=== PATIENT | female | born 1960 ===

== ENCOUNTER 2024-06-22 13:18 | Day surgery (SDC) | payer OTHER ==
[~2024-06-22] VITALS: Ht 167.6 cm; Wt 84.2 kg
[~2024-06-22 13:18] MED LIST: Balanced Salt Epinephrine Irrigation Solution 500 mL IR SCH; Diazepam 10 MG Tab ONE; Diazepam 5 MG Tab PO PRN; Diazepam 5 MG Tab PO SCH; Lidocaine HCl/Pf 1% 5 ML VIAL XX SCH; Moxifloxacin HCL 0.5 MG/0.1 ML 0.4MLSYR RIGHTEYE SCH; Ondansetron 4 MG SoluTab MM PRN; PHENYLEPHRINE\\TROPICAMIDE\\TETRACAINE OPHTHALMIC DILATING SOLN RIGHTEYE PRN; Povidone-Iodine 450 DROP/30 ML Solution ONE; Povidone-Iodine 450 DROP/30 ML Solution RIGHTEYE SCH; Tetracaine HCl/Pf 0.5% Opth Soln 4 ml ONE
[2024-06-22] MEDS ORDERED: ALBU90OI INH (13:33)
[2024-06-22] MEDS ORDERED: CARV3.125 (13:34)
[2024-06-22] MEDS ORDERED: Vitamin D1000 UNI1 (13:35)
[2024-06-22] MEDS ORDERED: FLUTICASONE-SA1 EAC9 (13:35)
[2024-06-22] MEDS ORDERED: IPRAT-ALBUT 0.5-3 ML (13:35)
[2024-06-22] MEDS ORDERED: LISI10 PO (13:36)
--- NOTE | 2024-06-22 13:46 | NUR ---
06/22/24 1346 Randy Bullock CALL [facility] WITHIN REACH. TETRACAINE IN RIGHT EYE AT 1334 AND PLEDGETT IN AT 1335. PT STATES ANXIETY LEVEL IS AT 5/10 VALIUM 10MG GIVEN AT 1331
--- NOTE | 2024-06-22 13:58 | NUR ---
06/22/24 1358 Honey Ernst VITALS AT 1355 BP:168/93 P:87 O2:94% 10 LITERS OF BLOW BY OXYGEN
== END 2024-06-22 14:34 | disposition home or self-care (01) ==
LOC: ORSCSDS 13:18
PROVIDERS: Student in an Organized Health Care Education/Training Program
PROC: 08RJ3JZ Replacement of Right Lens with Synthetic Substitute, Percutaneous Approach (ICD-10-PCS; principal; 2024-06-22 14:30)
DX: H25.091 Other age-related incipient cataract, right eye (principal); H52.201 Unspecified astigmatism, right eye; F17.210 Nicotine dependence, cigarettes, uncomplicated; Z96.1 Presence of intraocular lens; I10 Essential (primary) hypertension; Z86.19 Personal history of other infectious and parasitic diseases; J45.909 Unspecified asthma, uncomplicated; Z79.899 Other long term (current) drug therapy
CPT/HCPCS: A9270; V2632